=== PATIENT | female | born 1935 | race Caucasian/White ===

== ENCOUNTER 2016-06-24 08:55 | Emergency (ER) | payer OTHER ==
[~2016-06-24] VITALS: Ht 157.5 cm; Wt 58.0 kg
[~2016-06-24 08:55] MED LIST: CIPR500T93 PO; COUM2.5T PO; GABA100C4 PO; LORTA10 PO; LOVA40TA PO; METH2.5 PO; PHEN-426 PO; SYNT25TA PO
[2016-06-24 09:03] VITALS: BP 115/54; PULSE 87; RESP 16; TEMP 98.1; O2SAT 95
[2016-06-24] MEDS ORDERED: FOLI5CAP PO (09:37)
[2016-06-24] MEDS ORDERED: LEVO25TA4 PO (09:37)
[2016-06-24] MEDS ORDERED: MIRA50TA PO (09:37)
[2016-06-24] MEDS ORDERED: LOSA25TA PO (09:37)
[2016-06-24] MEDS ORDERED: LOVA40TA PO (09:37)
[2016-06-24] MEDS ORDERED: METH2.5T PO (09:37)
[2016-06-24] MEDS ORDERED: JANT2.5T PO (09:37)
[2016-06-24] MEDS ORDERED: ORPH100T99 PO (09:59)
--- NOTE | 2016-06-24 10:07 | PD ---
HPI Chief Complaint: Musculoskeletal Complaint Time Seen by Provider: 09:32 Travel History International Travel<30 days: No Contact w/Intl Traveler<30days: No Traveled to known affect area: No History of Present Illness HPI This patient complains of pain in her neck and shoulders. Duration 4 days. No specific injury. She says that at her gym someone has been putting her in a machine that stretches her neck. I asked her if this was her physician ordered physical therapy but no this is sort of off the cuff. PFSH Past Medical History Hx Anticoagulant Therapy: Yes (COUMADIN) Arthritis: Yes Blood Disorders: Yes (BLOOD CLOTS B/L LUNGS 5-6 YEARS AGO) Heart Rhythm Problems: Yes Cardiovascular Problems: Yes (DVT) High Cholesterol: Yes Diminished Hearing: No Hypertension: Yes Psychiatric: No Immunizations Current: Yes Thyroid Disease: Yes Tetanus Vaccination: < 5 Years ?: Not Menopausal: Yes Past Surgical History Abdominal Surgery: Yes (ABD. MESH;) Appendectomy: Yes Cholecystectomy: Yes Genitourinary Surgery: Yes (bladder sling) Hysterectomy: Yes Tonsillectomy: Yes Social History Alcohol Use: No Tobacco Use: Yes ("quit 25 years ago") Substance Use: No Allergies-Medications (Allergen,Severity, Reaction): Coded Allergies: Clindamycin (Verified Allergy, Severe, HIVES, 06/24/16) Doxycycline (Verified Allergy, Severe, HIVES, 06/24/16) Flagyl (Verified Allergy, Severe, HIVES, 06/24/16) Lyrica (Verified Allergy, Severe, HIVES, 06/24/16) Neosporin (Verified Allergy, Severe, RASH, 06/24/16) Penicillin (Verified Allergy, Severe, Hives, 06/24/16) Sulfa (Verified Allergy, Severe, Hives, 06/24/16) Tetracycline (Verified Allergy, Severe, HIVES, 06/24/16) Uncoded Allergies: DDIATROPAN (Allergy, Severe, HIVES, 06/24/16) Reported Meds & Prescriptions Reported Meds & Active Scripts Active Reported Levothyroxine (Levothyroxine Sodium) 25 Mcg Tab 12.5 Mcg PO DAILY Lovastatin 40 Mg Tab 40 Mg PO DAILY Losartan (Losartan Potassium) 25 Mg Tab 12.5 Mg PO DAILY Folic Acid 5 Mg Cap 1 Mg PO DAILY Methotrexate 2.5 Mg Tab 12.5 Mg PO Q7D Myrbetriq (Mirabegron) 50 Mg Tab 50 Mg PO DAILY Jantoven (Warfarin) 2.5 Mg Tab 2.5 Mg PO DAILY Review of Systems General / Constitutional: No: Fever HENT: No: Headaches Cardiovascular: No: Chest Pain or Discomfort Physical Exam Narrative NEUROLOGICAL: Awake and alert. Pupils are equal round and reactive. Motor and sensory grossly within normal limits. Five out of 5 muscle strength in all muscle groups. Normal speech. SKIN: Inspection shows no rash or ulcers. Palpation shows no induration or nodules. Neck: No bruising or swelling. No midline tenderness. No erythema or warmth. She does have muscular tenderness in the muscles bilaterally Data Data Last Documented VS Vital Signs Date Time Temp Pulse Resp B/P Pulse Ox O2 Delivery O2 Flow Rate FiO2 06/24/16 09:03 98.1 87 16 115/54 95 Orders Apply Cervical Collar (06/24/16 09:58) MDM Medical Decision Making Medical Screen Exam Complete: Yes Emergency Medical Condition: Yes Medical Record Reviewed: Yes Differential Diagnosis Muscle strain, contusion, disc herniation Narrative Course I have reviewed the patient's electronic medical record. This clearly seems muscular in superficial in origin of pain by exam. She is neurologically intact with no injury. Placed in a soft c-collar for her comfort Prescribe some Norflex and warned her about potential sedation Recommend primary care follow-up and avoidance of this strange contraption that is stretching her neck at the gym Diagnosis Primary Impression: Acute cervical myofascial strain Qualified Code: S16.1XXA - Acute cervical myofascial strain, initial encounter Additional Instructions: The patient was advised to follow up with their physician and return if they worsen. The patient was warned about potential sedation for the medications they will receive on prescription. Med/Other Pt SpecificInfo: Prescription(s) given Scripts Orphenadrine ER 12 HR (Orphenadrine CR)100 Mg [id number] Mg PO Q12HR PRN (PAIN SCALE 1 TO 10) #14 TAB Ref 0 Prov:Jered Bustos MD 06/24/16 Disposition: 01 DISCHARGE HOME Condition: Stable Jered Bustos MD Jun 24, 2016 10:07
== END 2016-06-24 10:40 | disposition home or self-care (01) ==
LOC: PHED 08:55
DX: S16.1XXA Strain of muscle, fascia and tendon at neck level, initial encounter (principal); Z49.01 Encounter for fitting and adjustment of extracorporeal dialysis catheter; E78.00 Pure hypercholesterolemia, unspecified; I10 Essential (primary) hypertension; Y93.B1 Activity, exercise machines primarily for muscle strengthening; X58.XXXA Exposure to other specified factors, initial encounter; Y92.39 Other specified sports and athletic area as the place of occurrence of the external cause; Y99.9 Unspecified external cause status
CPT/HCPCS: 99283